=== PATIENT | female | born 1995 | race Caucasian/White ===

== ENCOUNTER 2019-05-18 18:22 | Observation (INO) | END 2019-05-18 19:20 | disposition home or self-care (01) | LOC: 1NENULAB | PROVIDERS: ADMIT Advanced Practice Midwife; ATTEND Advanced Practice Midwife ==

== ENCOUNTER 2019-05-24 09:49 | Inpatient (IN) ==
[2019-05-24] MEDS ORDERED: Naloxone 0.4 MG/ML INJ IVP PRN (10:56)
[2019-05-24] MEDS ORDERED: Ondansetron 4 MG/2 ML VIAL IVP PRN (10:56)
[2019-05-24] MEDS ORDERED: Metoclopramide 10 MG/2 ML VIAL IVP PRN (10:56)
[2019-05-24] MEDS ORDERED: Famotidine 20 MG/2 ML VIAL IVP PRN (10:56)
[2019-05-24] MEDS ORDERED: miSOPROStoL 25 MCG TABLET PO ONE (11:01)
[2019-05-24 11:29] LABS: Basophils % 0.5 %; Eosinophils # 0.1 K/mcL (0.0-0.6); Eosinophils % 0.6 %; Hematocrit 33.2 % (35.3-44.9); Hemoglobin 10.8 g/dL (11.5-15.4); Immature Granulocytes % 1.1 % (0-4); Lymphocytes # 1.3 K/mcL (0.6-4.6); Lymphocytes % 15.7 %; Mean Corpuscular HGB Conc 32.5 g/dL (31.6-35.5); Mean Corpuscular Volume 79.8 fL (83.0-100.0); Monocytes # 0.9 K/mcL (0.0-1.3); Monocytes % 11.1 %; Platelet Count 209 K/mcL (140-400); Red Blood Count 4.16 M/mcL (3.82-4.97); Red Cell Distribution Width 13.9 % (11.5-14.5); White Blood Count 8.5 K/mcL (4.3-11.1)
[2019-05-24 11:38] LABS: Amphetamine Screen,Urine Negative ng/mL (Cutoff=1000); Barbiturate Screen,Urine Negative ng/mL (Cutoff=200); Benzodiazepines Screen,Urine Negative ng/mL (Cutoff=200); Cannabinoid Screen,Urine Negative ng/mL (Cutoff = 50); Cocaine Screen,Urine Negative ng/mL (Cutoff= 300); Opiate Screen,Urine Negative ng/mL (Cutoff=300); Phencyclidine Screen,Urine Negative ng/mL (Cutoff=25)
[2019-05-24] MEDS ORDERED: Oxytocin 20 units/ LR 1000 mL 20 UNIT/1,000 ML BAG IVC SCH (11:45)
[2019-05-24] MEDS: Ringers Solution, Lactated 1,000 ML IVC SCH ×4 (12:04→20:38)
[2019-05-24] MEDS ORDERED: EPHEDrine 50 MG/ML VIAL IVP PRN (15:08)
[2019-05-24] MEDS ORDERED: *HR* FentaNYL (PF) 100 MCG/2 ML VIAL ONE (15:10)
[2019-05-24] MEDS ORDERED: Bupivacaine-MPF 0.25% 10 ML VIAL ONE (15:10)
[2019-05-24] MEDS ORDERED: Epidural Premix (fent/bupiv) 110 ML EP ONE (15:12)
[2019-05-24] MEDS ORDERED: Epidural Premix (fent/bupiv) 110 ML EP SCH (15:15)
[2019-05-24] MEDS ORDERED: Acetaminophen 325 MG TABLET PO PRN (20:48)
[2019-05-25] MEDS ORDERED: Benzocaine/Menthol 56 GM AEROSOL SPRAY TP PRN (00:47)
[2019-05-25] MEDS ORDERED: Lanolin 7 G OINT...G. TP PRN (00:47)
[2019-05-25] MEDS ORDERED: Oxytocin 20 units/ LR 1000 mL 20 UNIT/1,000 ML BAG IVC SCH (00:47)
[2019-05-25] MEDS ORDERED: *HR* HYDROcodone/Acet 5/325 mg TABLET PO PRN (00:47)
[2019-05-25] MEDS ORDERED: Acetaminophen 325 MG TABLET PO PRN (00:47)
[2019-05-25] MEDS ORDERED: Measles/Mumps/Rubella Vacc 0.5 ML VIAL SQ PRN (00:47)
[2019-05-25] MEDS: Prenatal Vit/FA 1 EACH TABLET PO SCH (08:03)
[2019-05-25] MEDS: Ibuprofen 600 MG TABLET PO PRN ×2 (11:40→17:46)
[2019-05-26] MEDS: Ibuprofen 600 MG TABLET PO PRN ×2 (02:06→09:50)
[2019-05-26 08:27] VITALS: BP 99/55
[2019-05-26] MEDS: Prenatal Vit/FA 1 EACH TABLET PO SCH (09:50)
== END 2019-05-26 12:50 | disposition home or self-care (01) | DRG 807 ==
LOC: 1NENULAB 09:49 → 1NENUOBS 05-25 00:40
PROVIDERS: ADMIT Advanced Practice Midwife; ATTEND Advanced Practice Midwife